=== PATIENT | female | born 1945 | race Caucasian/White ===

== ENCOUNTER 2018-11-23 11:31 | Observation (INO) ==
[2018-11-23] MEDS ORDERED: BISACODYL 5 MG TABLET PO PRN (13:30)
[2018-11-23] MEDS ORDERED: ACETAMINOPHEN 325 MG TABLET PO PRN (13:30)
[2018-11-23] MEDS ORDERED: PROMETHAZINE 25 MG TABLET PO PRN (13:30)
[2018-11-23] MEDS ORDERED: METHOCARBAMOL 750 MG TABLET PO PRN (13:33)
[2018-11-23 14:06] LABS: Basophils # 0.1 10*3/uL (0.0-0.2); Basophils % 0.5 % (0.0-0.8); Eosinophils # 0.1 10*3/uL (0.0-0.87); Eosinophils % 0.6 % (0.00-10.9); Hematocrit 29.4 VOL% (35.7-47.0); Hemoglobin 9.4 GM/DL (12.0-16.0); Immature Granulocytes % 0.6 %; Immature Granulocytes Absolute 0.06 #; Lymphocytes # 1.9 10*3/uL (1.4-4.0); Lymphocytes % 20.2 % (21.3-54.2); Mean Corpuscular Volume 92.5 FL (87-102); Mean Platelet Volume 9.9 FL (9.6-12.0); Monocytes % 8.1 % (1.7-12.7); Platelet Count 513 T/CUMM (130-400); Red Blood Count 3.18 MC/CUMM (3.8-5.5); Red Cell Distribution Width 13.1 % (9.3-17.3); White Blood Count 9.4 T/CUMM (4-12)
[2018-11-23 14:40] LABS: Alanine Aminotransferase 19 U/L (13-56); Albumin 2.5 G/DL (3.4-5.0); Alkaline Phosphatase 146 U/L (45-117); Aspartate Amino Transferase 19 U/L (0-37); Bilirubin,Total < 0.39 MG/DL (0.2-1.0); Blood Urea Nitrogen 8 MG/DL (7-18); Calcium 8.6 MG/DL (8.5-10.1); Glucose 98 MG/DL (74-106); HDL Cholesterol 32 MG/DL (40-60); Osmolality,Calculated 267.1 MOS/KG (273-304); Risk Ratio 5.19; Total Protein 8.7 G/DL (6.4-8.3); Triglycerides 131 MG/DL (2-150); VLDL CHOLESTEROL 26.2 MG/DL
[2018-11-23] MEDS ORDERED: POTASSIUM CHLORIDE INJ 100 MEQ in SODIUM CHLORIDE 0.9% 1,000 ML IV ONE (16:00)
[2018-11-23] MEDS ORDERED: POTASSIUM CHLORIDE 20 MEQ TABLET PO ONE (16:56)
[2018-11-23] MEDS: ALBUTEROL/IPRATROPIUM 3 ML NEB RESP TX SCH (19:57)
[2018-11-23] MEDS: POTASSIUM CHLORIDE 10 MEQ TABLET PO SCH (20:57)
[2018-11-23] MEDS ORDERED: ENOXAPARIN 40 MG/0.4 ML SYRINGE SUBCUT SCH (21:00)
[2018-11-24] MEDS: ALBUTEROL/IPRATROPIUM 3 ML NEB RESP TX SCH ×3 (00:30→14:30)
[2018-11-24] MEDS: SODIUM CHLOR 0.9% KCL 20 MEQ 20 MEQ/1,000 ML BAG IV SCH ×2 (01:56→10:14)
[2018-11-24 04:57] LABS: Calcium 8.3 MG/DL (8.5-10.1); Osmolality,Calculated 274.5 MOS/KG (273-304)
[2018-11-24] MEDS ORDERED: PANTOPRAZOLE 40 MG TABLET PO SCH (06:30)
[2018-11-24] MEDS ORDERED: [UNRECOGNIZED DRUG - OTHER] PO SCH (09:00)
[2018-11-24] MEDS ORDERED: BUTALBITAL PO SCH (09:00)
[2018-11-24] MEDS ORDERED: CAFFEINE PO SCH (09:00)
[2018-11-24] MEDS ORDERED: ESCITALOPRAM 10 MG TABLET PO SCH (09:00)
[2018-11-24] MEDS ORDERED: FAMOTIDINE 20 MG TABLET PO SCH (09:00)
[2018-11-24] MEDS ORDERED: ASPIRIN PO SCH (09:00)
[2018-11-24] MEDS ORDERED: METOPROLOL SUCCINATE XL 100 MG TABLET PO SCH (09:00)
[2018-11-24] MEDS ORDERED: LOSARTAN 50 MG TABLET PO SCH (09:00)
[2018-11-24] MEDS ORDERED: CLOPIDOGREL 75 MG TABLET PO SCH (09:00)
[2018-11-24] MEDS: POTASSIUM CHLORIDE 10 MEQ TABLET PO SCH (10:01)
[2018-11-24 16:28] VITALS: BP 129/66
[2018-11-25] MEDS ORDERED: PANTOPRAZOLE 40 MG PO SCH (09:00)
[2018-11-26 05:21] LABS: Total Protein (Chem) 8.5 G/DL (6.4-8.3)
[2018-11-26 08:42] LABS: Albumin (SPE) 3.5 G/DL (3.2-5.3); Albumin (SPE) Rel % 41.3 %; Alpha 1 (SPE) 0.4 G/DL (0.1-0.4); Alpha 1 (SPE) Rel % 4.8 %; Alpha 2 (SPE) 1.1 G/DL (0.4-1.0); Alpha 2 (SPE) Rel % 13.3 %; Beta (SPE) 2.7 G/DL (0.5-1.1); Gamma (SPE) 0.8 G/DL (0.7-1.7); Gamma (SPE) Rel % 8.9 %
[2018-11-26 08:46] LABS: Beta (SPE) Rel % 31.7 %
== END 2018-11-24 17:01 | disposition home or self-care (01) ==
LOC: N.2E → SUATTDRO 11:41
PROVIDERS: ADMIT Internal Medicine; ATTEND Internal Medicine